=== PATIENT | male | born 1985 | race Caucasian/White ===

== ENCOUNTER → 2021-03-09 10:31 | Outpatient (BNVA) | payer OTHER, SELFPAY | PROVIDERS: Family Provider Family Medicine; Visit Provider Nurse Practitioner Family | DX: Z20.822 Contact with and (suspected) exposure to COVID-19 (principal) | CPT/HCPCS: 87635 ==

== ENCOUNTER 2021-03-20 18:58 | Emergency (ER) | payer OTHER, SELFPAY ==
[2021-03-20 19:19] VITALS: BP 159/116; PULSE 86; RESP 16; TEMP 37.1; O2SAT 99
--- NOTE | 2021-03-20 19:29 | ECG_ITS ---
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 Measurements Intervals [place] Rate: 82 P: 41 ND: 151 QRS: 21 QRSD: 86 T: 36 QT: 340 QTc: 399 Interpretive Statements SINUS RHYTHM No previous ECG available for comparison Electronically Signed On 03-21-2021 7:31:24 SURFACE BOSS by Yazmin Vu M.D. [id number]
--- NOTE | 2021-03-20 21:37 | W.ED.GENADLT ---
HPI - General Adult General: Chief complaint: General Medical Stated complaint: High blood Pressure Time Seen by Provider: 03/20/21 21:25 History of Present Illness: HPI narrative: Patient presents with a history of high blood pressures at age 20. He noticed that he was not feeling good last night his ears were get hot get a headache and so he checked her blood pressure is very high. He went to his primary care provider today they increase his lisinopril and his pressure has not come down. He denies any recent illness. Says he does have a headache. MD complaint: Hypertension Onset (ago): year(s) Associated symptoms: Reports other (Headache); Deny chest pain, headache(s), rash or vomiting Review of Systems Const: Denies: fever(s), chills or body aches Eyes: Denies: eye discharge ENMT: Denies: throat pain, oral sores or nasal congestion Card: Denies: chest pain or dyspnea on exertion Resp: Reports: non-productive cough; Denies: wheezing or stridor GI: Denies: vomiting or diarrhea : Denies: difficulty urinating Musc: Denies: extremity pain Skin/Breast: Denies: rash Neuro: Denies: headache(s) Psych: Denies: anxiety or depression John/Lymph: Denies: easy bruising PFSH ED PFSH: Social History (Updated 03/09/21 @ 09:58 by Louann Kumar NP) Smoking and tobacco status: former smoker Physical Exam Const: COMMON NORMALS: no acute distress (Child appears very well is playful in no distress) and patient oriented x3 GENERAL APPEARANCE: cooperative HENMT: COMMON NORMALS: normocephalic, external ears normal, EAC's normal, TM's normal bilaterally and Normal external nose present HEAD & SCALP: normal to inspection and normocephalic FACE & SINUS: normal facial exam NOSE: Normal external nose present and No nasal discharge present EXTERNAL EAR: Yes external ears normal EXTERNAL AUDITORY CANAL: EAC's normal TYMPANIC MEMBRANE: TM's normal bilaterally MOUTH: Normal oral and palatal mucosa present THROAT: posterior oropharynx normal Eye: COMMON NORMALS: conjunctivae normal GENERAL EYE: appearance normal, both eyes and all related structures CONJUNCTIVA: Yes conjunctivae normal Neck/C-Spine: COMMON NORMALS: no JVD Lymph: LYMPHATIC: no lymphadenopathy noted Chest: COMMONS NORMALS: normal inspection of the chest Resp: COMMON NORMALS: normal respiratory effort, No retractions, No use of accessory muscles and clear to auscultation bilaterally AUSCULTATION: clear to auscultation bilaterally Cardio: COMMON NORMALS: no JVD, regular rate and regular rhythm RATE: regular rate RHYTHM: regular rhythm GI: COMMON NORMALS: Normal to inspection, nondistended, normoactive bowel sounds present Extremity: COMMON NORMALS: normal to inspection Neuro: COMMON NORMALS: patient oriented x3 Skin: COMMON NORMALS: no rashes or lesions noted GENERAL SKIN EXAM: no rashes or lesions noted Course Vital Signs: Vital signs: Vital Signs Temperature 98.8 F 03/20/21 19:19 Pulse Rate 62 03/20/21 22:07 Respiratory Rate 18 03/20/21 22:07 Blood Pressure 124/84 03/20/21 22:07 Pulse Oximetry 98 03/20/21 22:07 MDM - General Adult MDM Narrative: Medical decision making narrative: Patient took 3 of his lisinopril 10 mg over the space of today since appointment. Now blood pressures come down to very manageable blood pressure. Patient feels much better headache is gone. Laboratory studies were negative. EKG looks fine. Patient been on lisinopril since age 20. We will changed over to telmisartan try that follow-up primary care provider. Lab Data: Labs: Lab Results 03/20/21 03/20/21 21:36 21:36 WBC 11.0 10^3/uL H 10 ^3/uL (4.0-10.0) RBC 5.02 10^6/uL 10^6 /uL (4.1-5.3) Hgb 14.9 g/dL g/dL (11.7-16.6) Hct 44.0 % % (42.0-52.0) MCV 87.6 fl fl (80-94) MCH 29.7 pg pg (28.0-34.0) MCHC 33.9 g/dL g/dL (30.0-36.0) RDW 12.9 % % (12.1-15.1) Plt Count 292 10^3/cmm 10^3 /cmm (130-400) MPV 10.2 fL fL (7.4-10.4) Neut % (Auto) 58.5 % % Lymph % (Auto) 31.1 % % [place] % (Auto) 8.1 % % Eos % (Auto) 1.4 % % Baso % (Auto) 0.6 % % Neut # (Auto) 6.41 10^3/uL 10^3 /uL (1.8-7.7) Lymph # (Auto) 3.4 10^3/uL 10^3/ uL (0.8-4.8) [place] # (Auto) 0.9 10^3/uL 10^3/ uL (0.2-0.9) Eos # (Auto) 0.2 10^3/uL 10^3/ uL (0.0-0.8) Baso # (Auto) 0.1 10^3/uL 10^3/ uL (0.0-0.1) Nucleated RBC % (a uto) 0 % % Nucleated RBCs # 0.0 /100WBC /100W BC Sodium 140 mmol/L mmol/L (136-145) Potassium 4.0 mmol/L mmol/L (3.5-5.1) Chloride 102 mmol/L mmol/L (98-107) Carbon Dioxide 22 mmol/L mmol/L (22-29) Anion Gap 20.0 H (5-19) BUN 15 mg/dL mg/dL (6-20) Creatinine 0.8 mg/dL mg/dL (0.7-1.2) GFR Calculation 109.4 mL/min mL/m in (90-130) Glucose 95 mg/dL mg/dL (65-115) Calculated Osmolal ity 291 mOsm/kg mOsm/ kg (285-295) Calcium 9.2 mg/dL mg/dL (8.5-10.5) Magnesium 2.0 mg/dL mg/dL (1.7-2.3) Discharge Plan Discharge Patient Disposition: Home Clinical Impression: Benign essential HTN Condition: Stable Prescriptions: New Micardis 40 mg tablet 40 mg PO DAILY Qty: 30 RF: 0 Discontinued lisinopril 5 mg tablet 5 mg PO DAILY RF: 0 Discharge Orders: Discharge ED (Routine); Ordered 03/20/21 Ordered By: Parminder Murray Referrals: Scott Allen MD [Family Provider] - Discharge Diet: Usual diet Discharge Activity: Increase activity as tolerated Patient Instructions: Chronic Hypertension (ED) Activity Restrictions/Additional Instructions: Follow-up with medical provider as directed. Take medications as prescribed. Return to the ER or your medical provider if condition worsens. Please read and understand discharge instructions. If any questions ask please. Check blood pressure readings twice a day. Stop lisinopril and start new medication Coding Level of Care Code ED Exploration Geologist for Harshad Fwd Exam Comprehensive
[2021-03-20 21:50] LABS: Basophils # 0.1 10^3/uL (0.0-0.1); Basophils % 0.6 %; Eosinophils # 0.2 10^3/uL (0.0-0.8); Eosinophils % 1.4 %; Hemoglobin 14.9 g/dL (11.7-16.6); Lymphocytes # 3.4 10^3/uL (0.8-4.8); Lymphocytes % 31.1 %; Mean Corpuscular HGB Conc 33.9 g/dL (30.0-36.0); Mean Corpuscular Hemoglobin 29.7 pg (28.0-34.0); Mean Corpuscular Volume 87.6 fl (80-94); Mean Platelet Volume 10.2 fL (7.4-10.4); Monocytes # 0.9 10^3/uL (0.2-0.9); Monocytes % 8.1 %; Neutrophils # 6.41 10^3/uL (1.8-7.7); Neutrophils % 58.5 %; Nucleated Red Blood Cells % 0 %; Platelet Count 292 10^3/cmm (130-400); Red Blood Count 5.02 10^6/uL (4.1-5.3); Red Cell Distribution Width 12.9 % (12.1-15.1)
[2021-03-20 22:06] VITALS: BP 124/84
[2021-03-20 22:07] VITALS: BP 124/84; PULSE 62; RESP 18; O2SAT 98
[2021-03-20 22:16] LABS: Blood Urea Nitrogen 15 mg/dL (6-20); Calcium 9.2 mg/dL (8.5-10.5); Carbon Dioxide 22 mmol/L (22-29); Chloride 102 mmol/L (98-107); Glomerular Filtration Rate 109.4 mL/min (90-130); Glucose 95 mg/dL (65-115); Osmolality Calculated 291 mOsm/kg (285-295); Sodium 140 mmol/L (136-145)
[2021-03-20 22:36] VITALS: BP 144/99; PULSE 89; RESP 18; O2SAT 97
== END 2021-03-20 22:38 | disposition home or self-care (01) ==
PROVIDERS: Emergency Provider Nurse Practitioner Family; Family Provider Family Medicine
DX: I10 Essential (primary) hypertension (principal); Z87.891 Personal history of nicotine dependence
CPT/HCPCS: 80048; 83735; 85025; 93005; 99283

== ENCOUNTER → 2021-03-29 17:04 | Outpatient (BNVA) | payer OTHER, SELFPAY | PROVIDERS: Family Provider Family Medicine; Visit Provider Family Medicine | DX: Z20.2 Contact with and (suspected) exposure to infections with a predominantly sexual mode of transmission (principal) | CPT/HCPCS: 87491; 87591 ==